=== PATIENT | male | born 1980 | race African-American/Black ===

== ENCOUNTER 2017-07-21 10:14 | Emergency (ER) | payer MEDICARE ==
[~2017-07-21] VITALS: Ht 172.7 cm; Wt 80.0 kg
[2017-07-21 10:16] VITALS: BP 133/76; PULSE 86; RESP 16; TEMP 97.7; O2SAT 96
--- NOTE | 2017-07-21 11:01 | PD ---
HPI Chief Complaint: Respiratory Symptoms Time Seen by Provider: 11:00 Travel History International Travel<30 days: No Contact w/Intl Traveler<30days: No Traveled to known affect area: No History of Present Illness HPI 37-year-old male came to the emergency room with history of postnasal drainage, cough, productive sputum that's yellowish to greenish in color, swelling of both his feet that has been going on for past 2 months. Patient moved here from [place] and is in the process of finding a primary care physician for himself. He denies smoking. No history of chest pain. No history of shortness of breath. His vital signs were stable. Patient takes Lasix for fluid overload but has never been diagnosed with any heart condition. FORMERLY [facility], [facility]–1983 Past Medical History Narrative Medical List of his past medical, surgical, social and family history is reviewed from the nursing note. Anemia: Yes ([id number]) Asthma: Yes GERD: Yes Neurologic: Yes (TBI) Social History Alcohol Use: No Tobacco Use: Yes Substance Use: Yes (Marijuana, cocaine) Allergies-Medications (Allergen,Severity, Reaction): Coded Allergies: bee venom protein (honey bee) (Verified Allergy, Unknown, 07/21/17) iodine (Verified Allergy, Unknown, 07/21/17) mercury (elemental) (Verified Allergy, Unknown, 07/21/17) tramadol (Verified Allergy, Unknown, hives, 07/21/17) Comments List of his allergies reviewed from the nursing note. Reported Meds & Prescriptions Reported Meds & Active Scripts Active Reported Colace (Docusate Sodium) 100 Mg Capsule 100 Mg PO DAILY Lasix (Furosemide) 20 Mg Tab 10 Mg PO DAILY Su Allergy (Fexofenadine HCl) 180 Mg Tab 180 Mg PO DAILY Singulair (Montelukast Sodium) 10 Mg Tab 10 Mg PO HS Benztropine (Benztropine Mesylate) 0.5 Mg Tab 0.5 Mg PO BID Narrative Medication List of his home medications reviewed from the nursing note. Review of Systems Except as stated in HPI: all other systems reviewed are Neg Respiratory: Positive: Cough Musculoskeletal: Positive: Edema Physical Exam Narrative GENERAL: Awake, alert, no obvious distress SKIN: Focused skin assessment warm/dry. HEAD: Atraumatic. Normocephalic. EYES: Pupils equal and round. No scleral icterus. No injection or drainage. ENT: No nasal bleeding or discharge. Mucous membranes pink and moist. NECK: Trachea midline. No JVD. CARDIOVASCULAR: Regular rate and rhythm. No murmur appreciated. RESPIRATORY: No accessory muscle use. Clear to auscultation. Breath sounds equal bilaterally. GASTROINTESTINAL: Abdomen soft, non-tender, nondistended. Hepatic and splenic margins not palpable. MUSCULOSKELETAL: No obvious deformities. No clubbing. No cyanosis. No edema. NEUROLOGICAL: Awake and alert. No obvious cranial nerve deficits. Motor grossly within normal limits. Normal speech. PSYCHIATRIC: Appropriate mood and affect; insight and judgment normal. Data Data Last Documented VS Vital Signs Date Time Temp Pulse Resp B/P (MAP) Pulse Ox O2 Delivery O2 Flow Rate FiO2 07/21/17 12:51 07/21/17 11:14 Room Air 07/21/17 10:16 97.7 86 16 96 Orders Orders Complete Blood Count With Diff (07/21/17 11:15) Basic Metabolic Panel (Bmp) (07/21/17 11:15) Chest, Pa & Lat (07/21/17 ) B-Type Natriuretic Peptide (07/21/17 11:15) Ed Discharge Order (07/21/17 12:47) Labs Laboratory Tests Test 07/21/17 11:30 White Blood Count 4.4 TH/MM3 Red Blood Count 4.81 MIL/MM3 Hemoglobin 13.7 GM/DL Hematocrit 41.6 % Mean Corpuscular Volume 86.5 FL Mean Corpuscular Hemoglobin 28.5 PG Mean Corpuscular Hemoglobin Concent 33.0 % Red Cell Distribution Width 13.1 % Platelet Count 184 TH/MM3 Mean Platelet Volume 8.0 FL Neutrophils (%) (Auto) 54.8 % Lymphocytes (%) (Auto) 28.3 % Monocytes (%) (Auto) 12.0 % Eosinophils (%) (Auto) 4.0 % Basophils (%) (Auto) 0.9 % Neutrophils # (Auto) 2.4 TH/MM3 Lymphocytes # (Auto) 1.2 TH/MM3 Monocytes # (Auto) 0.5 TH/MM3 Eosinophils # (Auto) 0.2 TH/MM3 Basophils # (Auto) 0.0 TH/MM3 CBC Comment DIFF FINAL Differential Comment Blood Urea Nitrogen 9 MG/DL Creatinine 0.83 MG/DL Random Glucose 108 MG/DL Calcium Level 8.5 MG/DL Sodium Level 140 MEQ/L Potassium Level 3.6 MEQ/L Chloride Level 107 MEQ/L Carbon Dioxide Level 28.5 MEQ/L Anion Gap 5 MEQ/L Estimat Glomerular Filtration Rate 126 ML/MIN B-Type Natriuretic Peptide 12 PG/ML MDM Medical Decision Making Medical Screen Exam Complete: Yes Emergency Medical Condition: Yes Medical Record Reviewed: Yes Differential Diagnosis Congestive heart failure, dependent edema, bronchitis, sinusitis Narrative Course 12:24 PM chest x-ray is negative for pneumonia. Blood test results of back and within normal limit except for the BNP which is still pending. If that's negative I'll discharge him home. He needs to follow up with his primary care from here on. Procedures EKG Prior to Arrival: No Diagnosis Primary Impression: Chronic cough Additional Impressions: Needs smoking cessation education Dependent edema Referrals: Primary Care Physician Additional Instructions: Please return to the ER if the condition worsens. Use compression stockings for your dependent edema. Follow-up with your primary care. Med/Other Pt SpecificInfo: No Change to Meds Disposition: 01 DISCHARGE HOME Condition: Stable Becky Willoughby MD Jul 21, 2017 11:01
[2017-07-21] MEDS ORDERED: FEXO15TA PO (11:20)
[2017-07-21] MEDS ORDERED: MONT10TA2 PO (11:20)
[2017-07-21] MEDS ORDERED: FURO1TAB62 PO (11:20)
[2017-07-21] MEDS ORDERED: BENZ0.5T PO (11:20)
[2017-07-21] MEDS ORDERED: COLA100C5 PO (11:20)
[2017-07-21 11:45] LABS: AUTOMATED NEUTROPHIL # 2.4 TH/MM3 (1.8-7.7); BASOPHIL % 0.9 % (0.0-2.0); EOSINOPHIL # 0.2 TH/MM3 (0-0.4); HEMATOCRIT 41.6 % (39.0-51.0); HEMOGLOBIN 13.7 GM/DL (13.0-17.0); LYMPH % 28.3 % (9.0-44.0); LYMPHOCYTE # 1.2 TH/MM3 (1.0-4.8); MEAN CELL VOLUME 86.5 FL (80.0-100.0); MEAN CORPUSCULAR HEMOGLOBIN 28.5 PG (27.0-34.0); MONOCYTE # 0.5 TH/MM3 (0-0.9); NEUT % 54.8 % (16.0-70.0); PLATELET COUNT 184 TH/MM3 (150-450); RED BLOOD COUNT 4.81 MIL/MM3 (4.50-5.90); RED CELL DISTRIBUTION WIDTH 13.1 % (11.6-17.2); WHITE BLOOD COUNT 4.4 TH/MM3 (4.0-11.0)
[2017-07-21 12:02] LABS: BICARBONATE 28.5 MEQ/L (21.0-32.0); CALCIUM 8.5 MG/DL (8.5-10.1); CREATININE 0.83 MG/DL (0.60-1.30)
--- NOTE | 2017-07-21 12:03 | RADRPT ---
EXAM DATE/TIME: 07/21/2017 11:41 [facility] COMPARISON: No previous studies available for comparison. INDICATIONS : Cough, congestion. MEDICAL HISTORY : Smoker. SURGICAL HISTORY : Gynecomastia. ENCOUNTER: Initial ACUITY: 2 months PAIN SCORE: 0/10 LOCATION: Bilateral chest FINDINGS: PA and lateral views of the chest demonstrate the lungs to be symmetrically aerated without evidence of mass, infiltrate or effusion. The cardiomediastinal contours are unremarkable. Osseous structure s are intact. CONCLUSION: No acute disease. There is no evidence of pneumonia. Haile Arana MD on July 21, 2017 at 12:01 Board Certified Radiologist. This report was verified electronically.
== END 2017-07-21 13:21 | disposition home or self-care (01) ==
LOC: NEPD 10:14
DX: R05 Cough (principal); R60.9 Edema, unspecified; Z72.0 Tobacco use
CPT/HCPCS: 71020; 80048; 83880; 85025; 99284